=== PATIENT | female | born 1970 | race Caucasian/White ===

== ENCOUNTER 2017-01-27 15:18 | Emergency (ER) | payer MEDICARE ==
[2017-01-27 16:29] LABS: HEMOGLOBIN 14.3 gm/dl (12.3-15.3); RED BLOOD COUNT 4.16 M/UL (4.00-5.10)
[2017-01-27 16:54] LABS: BUN/CREATININE RATIO 22 (0-10)
== END 2017-01-27 23:30 | disposition home or self-care (01) ==
LOC: ER1 15:18
PROVIDERS: Physician Assistant
DX: R10.812 Left upper quadrant abdominal tenderness (principal); R10.816 Epigastric abdominal tenderness; R42 Dizziness and giddiness; R07.9 Chest pain, unspecified; R11.2 Nausea with vomiting, unspecified; F17.210 Nicotine dependence, cigarettes, uncomplicated; Z90.49 Acquired absence of other specified parts of digestive tract
CPT/HCPCS: 36415; 71010; 80053; 81001; 82150; 82550; 82553; 83690; 83874; 84484; 85025; 85379; 93005; 96374; 96375; 96376; 99284; J2060; J2270; J2405

== ENCOUNTER 2017-02-12 15:17 | Emergency (ER) | payer MEDICARE ==
[2017-02-12 19:33] LABS: HEMOGLOBIN 13.8 gm/dl (12.3-15.3); RED BLOOD COUNT 3.93 M/UL (4.00-5.10); WHITE BLOOD COUNT 5.3 K/UL (4.5-11.0)
[2017-02-12 20:00] LABS: BUN/CREATININE RATIO 20 (0-10)
== END 2017-02-12 23:00 | disposition home or self-care (01) ==
LOC: ER1 15:17
PROVIDERS: Physician Assistant
DX: M79.1 Myalgia (principal); E86.0 Dehydration; R11.2 Nausea with vomiting, unspecified; F17.210 Nicotine dependence, cigarettes, uncomplicated; M06.9 Rheumatoid arthritis, unspecified; G43.909 Migraine, unspecified, not intractable, without status migrainosus; Z90.49 Acquired absence of other specified parts of digestive tract; Z79.899 Other long term (current) drug therapy
CPT/HCPCS: 36415; 76830; 80053; 80307; 81001; 83690; 84484; 84702; 84703; 85025; 87040; 87086; 96361; 96374; 96375; 99284; G0480; J2270; J2550

== ENCOUNTER 2017-02-15 17:52 | Inpatient (IN) | payer MEDICARE ==
[~2017-02-15] VITALS: Ht 154.9 cm; Wt 58.1 kg
[2017-02-15 21:38] LABS: HEMOGLOBIN 12.7 gm/dl (12.3-15.3); RED BLOOD COUNT 3.68 M/UL (4.00-5.10)
[2017-02-15 21:57] LABS: BUN/CREATININE RATIO 18 (0-10)
[2017-02-16] MEDS ORDERED: ZANAFLEX 4 MG TA4 MG PO (21:10)
[2017-02-16] MEDS ORDERED: FLEXERIL 10 MG10 MG PO (21:10)
[2017-02-16] MEDS ORDERED: ZOFRAN4 MG PO (21:11)
[2017-02-16] MEDS ORDERED: PRILOSEC OTC20 MG PO (21:12)
[2017-02-16] MEDS ORDERED: PHENERGAN 25 MG25 M1 PO (21:12)
[2017-02-16] MEDS ORDERED: ELAVIL 50 MG TA50 MG PO (21:13)
[2017-02-17 06:46] LABS: RED BLOOD COUNT 3.25 M/UL (4.00-5.10); WHITE BLOOD COUNT 5.6 K/UL (4.5-11.0)
[2017-02-17 07:12] LABS: BUN/CREATININE RATIO 17 (0-10)
[2017-02-18 05:51] LABS: RED BLOOD COUNT 3.25 M/UL (4.00-5.10); WHITE BLOOD COUNT 5.9 K/UL (4.5-11.0)
[2017-02-18 06:09] LABS: BUN/CREATININE RATIO 10 (0-10)
[2017-02-19 05:04] LABS: HEMOGLOBIN 10.8 gm/dl (12.3-15.3); RED BLOOD COUNT 3.2 M/UL (4.00-5.10); WHITE BLOOD COUNT 5.6 K/UL (4.5-11.0)
[2017-02-20 04:15] LABS: HEMOGLOBIN 10.9 gm/dl (12.3-15.3); RED BLOOD COUNT 3.26 M/UL (4.00-5.10); WHITE BLOOD COUNT 4.5 K/UL (4.5-11.0)
[2017-02-21] MEDS ORDERED: LEVOFLOXACIN750 MG PO (13:32)
[2017-02-21] MEDS ORDERED: ROBITUSSIN DM473 ML PO (13:33)
[2017-02-21] MEDS ORDERED: SYMBICORT 16010.2 GM INH (13:34)
[2017-02-21] MEDS ORDERED: IPRAT-ALBUT 0.5-3 ML INH (13:35)
== END 2017-02-21 14:15 | disposition home or self-care (01) | DRG 871 ==
LOC: ER1 17:52 → MED SURG 4 02-16 13:57 → ZEROF 02-16 13:57 → MED SURG 4 02-16 20:10
PROVIDERS: Family Medicine; ADMIT Internal Medicine
DX: A41.9 Sepsis, unspecified organism (principal); J18.9 Pneumonia, unspecified organism; J96.01 Acute respiratory failure with hypoxia; G90.50 Complex regional pain syndrome I, unspecified; E87.1 Hypo-osmolality and hyponatremia; Z86.19 Personal history of other infectious and parasitic diseases; M79.7 Fibromyalgia; F17.210 Nicotine dependence, cigarettes, uncomplicated; B95.0 Streptococcus, group A, as the cause of diseases classified elsewhere; G89.4 Chronic pain syndrome; Z79.899 Other long term (current) drug therapy; F12.90 Cannabis use, unspecified, uncomplicated; Z82.49 Family history of ischemic heart disease and other diseases of the circulatory system; Z80.9 Family history of malignant neoplasm, unspecified; Z80.1 Family history of malignant neoplasm of trachea, bronchus and lung; Z80.0 Family history of malignant neoplasm of digestive organs; M54.40 Lumbago with sciatica, unspecified side; G43.909 Migraine, unspecified, not intractable, without status migrainosus; Z72.89 Other problems related to lifestyle; M06.9 Rheumatoid arthritis, unspecified; Z90.49 Acquired absence of other specified parts of digestive tract; Z98.51 Tubal ligation status; Z98.890 Other specified postprocedural states; Z83.3 Family history of diabetes mellitus; R11.2 Nausea with vomiting, unspecified; E87.6 Hypokalemia; E86.0 Dehydration; R00.0 Tachycardia, unspecified
CPT/HCPCS: 36415; 36600; 71010; 71020; 80048; 80053; 81001; 82150; 82803; 83605; 83690; 83735; 84132; 84702; 85025; 85379; 85610; 85730; 86850; 86900; 86901; 87015; 87040; 87070; 87077; 87102; 87116; 87186; 87205; 87210; 92610; 94640; 94664; 96361; 96365; 96366; 96367; 96375; 99285; J0696; J2270; J2550; J7030; J7050; J7120; Q9962; Q9963

== ENCOUNTER → 2017-03-28 | Outpatient (CLI) | payer MEDICARE ==
[~2017-03-28] MED LIST: ELAVIL 50 MG TA50 MG PO; FLEXERIL 10 MG10 MG PO; IPRAT-ALBUT 0.5-3 ML INH; LEVOFLOXACIN750 MG PO; PHENERGAN 25 MG25 M1 PO; PRILOSEC OTC20 MG PO; ROBITUSSIN DM473 ML PO; SYMBICORT 16010.2 GM INH; ZANAFLEX 4 MG TA4 MG PO; ZOFRAN4 MG PO
== END ==
LOC: CT 10:36
DX: R91.8 Other nonspecific abnormal finding of lung field (principal); K22.8 Other specified diseases of esophagus
CPT/HCPCS: 71250

== ENCOUNTER → 2017-04-02 | Outpatient (CLI) | payer MEDICARE | LOC: HEART 5 09:56 | DX: J96.00 Acute respiratory failure, unspecified whether with hypoxia or hypercapnia (principal); F17.210 Nicotine dependence, cigarettes, uncomplicated; R94.2 Abnormal results of pulmonary function studies | CPT/HCPCS: 94060; 94729 ==